=== PATIENT | male | born 1995 | race American Indian/Alaskan Native ===

== ENCOUNTER 2017-08-05 22:35 | Emergency (ER) | payer SELFPAY ==
[2017-08-05 23:36] VITALS: BP 113/66
--- NOTE | 2017-08-06 00:28 | XRay Report ---
FINAL REPORT EXAM: XR FOREARM RT HISTORY: laceration R arm/foreign body TECHNIQUE: AP and lateral views of the right forearm were obtained. FINDINGS: There is no evidence of fracture or dislocation. There is soft tissue deformity overlying the ventral aspect of the distal forearm. There is no evidence of foreign body. IMPRESSION: No evidence of fracture or dislocation. No evidence of radiopaque foreign body in the soft tissues.
[2017-08-06] MEDS ORDERED: BOOSTRIX IM ONE (02:33)
[2017-08-06] MEDS ORDERED: NORCO 5/325 PO ONE (02:33)
--- NOTE | 2017-08-06 02:40 | Emergency Department Report ---
ED Laceration HPI - HPI Chief Complaint: Wound/Laceration Stated Complaint: R HAND LAC Time Seen by Provider: 08/06/17 01:48 Severity: moderate Tetanus Status: Not up to Date Laceration Symptoms: Yes Pain, No Foreign Body Sensation, No Numbness, No Weakness ED Review of Systems ROS: Stated complaint: R HAND LAC Other details as noted in HPI Constitutional: denies: chills, fever Eyes: denies: eye pain, eye discharge, vision change ENT: denies: ear pain, throat pain Respiratory: denies: cough, shortness of breath, wheezing Cardiovascular: denies: chest pain, palpitations Endocrine: no symptoms reported Gastrointestinal: denies: abdominal pain, nausea, diarrhea Genitourinary: denies: urgency, dysuria Musculoskeletal: joint swelling (mild left wrist swelling ) Skin: other (laceration left wrist ) Neurological: denies: headache, weakness, paresthesias Psychiatric: as per HPI Hematological/Lymphatic: denies: easy bleeding, easy bruising ED Past Medical Hx - Past Medical History Previous Medical History?: No - Surgical History Past Surgical History?: No - Social History Smoking Status: Current Every Day Smoker Substance Use Type: Alcohol, Marijuana - Medications Home Medications: Home Medications Medication Instructions Recorded Confirmed Last Taken Type Cephalexin [Keflex] 500 mg PO TID #30 capsule 08/06/17 Unknown Rx traMADol [Ultram] 50 mg PO Q8HR PRN #15 tablet 08/06/17 Unknown Rx Laceration Physical Exam - Exam General: Vital signs noted. No distress. Alert and acting appropriately. Laceration Location: Upper Extremity Laceration Exam: Yes Normal Distal CMS, No Foreign Body, No Exposed Tendon, Vessel, or Nerve, No Tendon Injury ED Course Vital Signs 08/05/17 23:27 Temperature 98.5 F Pulse Rate 64 Respiratory 18 Rate Blood Pressure 113/66 O2 Sat by Pulse 98 Oximetry - Laceration /Wound Repair Right Anterior Wrist Wound Location: upper extremity Wound Length (cm): 3 Wound's Depth, Shape: superficial, linear Wound Explored: clean Irrigated w/ Saline (ccs): 150 Betadine Prep?: Yes Anesthesia: 1% Lidocaine Volume Anesthetic (ccs): 4 Wound Repaired With: sutures Suture Size/Type: 3:0 Number of Sutures: 8 Layer Closure?: No Sterile Dressing Applied?: Yes Progress: right wrist laceration repair via suture x 8 , 3 cm anterior wrist laceration no nerve tendon or muscle involvement rom intact, no active bleeding, wound cleaned with betadine solution , irrigated wtih 150 cc sterile saline, anesthesia with 1% , wound closed with prolene 3.0 x 8 sutures all bleeding controlled pt tolerated with minimal distress, post procedure CMS intact, rom intact rad pulses + 2, 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 Postprocedure range of motion CMS intact including flexion and extension of wrist abduction and abduction of all fingers Follow PCP in 2-3 days with DC'd to home in stable condition at this time Critical care attestation.: If time is entered above; I have spent that time in minutes in the direct care of this critically ill patient, excluding procedure time. ED Disposition Clinical Impression: Wrist laceration Qualifiers: Encounter type: initial encounter Laterality: right Qualified Code(s): S61.511A - Laceration without foreign body of right wrist, initial encounter Disposition: DC-01 TO HOME OR SELFCARE Is pt being admited?: No Does the pt Need Aspirin: No Condition: Good Instructions: Laceration (ED) Prescriptions: Cephalexin [Keflex] 500 mg PO TID #30 capsule traMADol [Ultram] 50 mg PO Q8HR PRN #15 tablet PRN Reason: Pain Referrals: JAVI KNOX MD [Staff Physician] - 3-5 Days Forms: Work/School Release Form(ED) Time of Disposition: 02:44
[2017-08-06] MEDS ORDERED: NORCO 5/325 ONE (05:26)
== END 2017-08-06 02:45 | disposition home or self-care (01) ==
LOC: ED 22:35
DX: S61.511A Laceration without foreign body of right wrist, initial encounter (principal); F17.200 Nicotine dependence, unspecified, uncomplicated; F12.10 Cannabis abuse, uncomplicated; X58.XXXA Exposure to other specified factors, initial encounter; Y93.89 Activity, other specified; Y92.89 Other specified places as the place of occurrence of the external cause; Y99.8 Other external cause status
CPT/HCPCS: 99283